=== PATIENT | female | born 1970 | race Caucasian/White ===

== ENCOUNTER 2017-11-14 12:16 | Emergency (ER) | payer BC ==
[2017-11-14 13:28] VITALS: BP 104/86
--- NOTE | 2017-11-14 13:30 | UC ---
General HPI - HPI Summary HPI Summary: PT IS C/O TIGHTNESS IN HER THROAT AND LUNGS SINCE YESTERDAY. REPORTS A HX OF ALLERGIES AND ASTHMA. STATES GETS THIS THE SAME TIME EVERY YEAR. STATES USED AN OLD INHALER AND TIGHTNESS IN LUNGS IMPROVED BUT THROAT STILL TIGHT BUT ONLY WITH DEEP BREATHS. DENIES HX CARDIAC DISEASE. NO NAUSEA OR SWEATING. NO HX DM , HIGH CHOL. IS A SMOKER. NO PREMATURE CAD IN FAMILY. NO FMH CAD. - History of Current Complaint Stated Complaint: SORE THROAT, ALLERGIES Time Seen by Provider: 11/14/17 13:23 Hx Obtained From: Patient Hx Last Menstrual Period: APPROX 4 WKS AGO. Aggravating: NOTHING, NOT EXERTIONAL Alleviating: INHALER Associated Signs & Symptoms: Negative: Back Pain, Cough, Chest Pain, Diaphoresis , Fever, Wheezing - Allergy/Home Medications Allergies/Adverse Reactions: Allergies Allergy/AdvReac Type Severity Reaction Status Date / Time benzocaine Allergy "Facial Verified 11/14/17 13:24 swelling and possible throat swelling" lidocaine Allergy "Facial Verified 11/14/17 13:24 swelling and possible throat swelling" tetracaine Allergy "Facial Verified 11/14/17 13:24 swelling and possible throat swelling" Home Medications: Home Medications Albuterol HFA INHALER* [Ventolin HFA Inhaler*] 1 - 2 puff INH Q4H PRN 11/14/17 [ History Confirmed 11/14/17] Fexofenadine (NF) [Марина 180 (NF)] 180 mg PO DAILY 11/14/17 [History Confirmed 11/14/17] PMH/Surg Hx/FS Hx/Imm Hx - Additional Past Medical History Additional PMH: ALLERGIES Respiratory History: Asthma - Surgical History Surgical History: Yes Surgery Procedure, Year, and Place: Left carpal tunnel release. Uterine polyps removed - Family History Known Family History: Positive: Hypertension, Diabetes, Respiratory Disease - COPD, Other - Cancer - Social History Lives: With Family Alcohol Use: Daily Substance Use Type: None Smoking Status (MU): Current Every Day Smoker Type: Cigarettes Amount Used/How Often: 6 CIGS PER DAY Length of Time of Smoking/Using Tobacco: 20 YRS - Immunization History Vaccination Up to Date: Yes Review of Systems Constitutional: Negative Skin: Negative Eyes: Negative ENT: Negative Respiratory: Negative Cardiovascular: Negative Gastrointestinal: Negative Genitourinary: Negative Motor: Negative Neurovascular: Negative Musculoskeletal: Negative Neurological: Negative Psychological: Negative Is Patient Immunocompromised?: No All Other Systems Reviewed And Are Negative: Yes Physical Exam Triage Information Reviewed: Yes Appearance: Well-Appearing Vital Signs Reviewed: Yes Eyes: Positive: Conjunctiva Clear ENT: Positive: Pharyngeal erythema, TMs normal. Negative: Nasal congestion, Nasal drainage Neck: Positive: Supple, Nontender, No Lymphadenopathy Respiratory: Positive: Lungs clear, No respiratory distress, Decreased breath sounds Cardiovascular: Positive: RRR, No Murmur, Other: - STRONG RADIAL PULSES, NO LEG EDEMA OR CORDS/CALF PAIN Abdomen Description: Positive: Nontender, No Organomegaly, Soft, Distended, Guarding Bowel Sounds: Positive: Present Musculoskeletal: Positive: ROM Intact, No Edema Neurological: Positive: Alert Psychological: Positive: Age Appropriate Behavior Skin Exam: Normal Diagnostics - Laboratory Diagnostic Studies Completed/Ordered: pt refused ekg, advised could miss cardiac issue but still refused. Re-Evaluation - Re-Evaluation Second Eval Re-Evaluation Time: 14:05 Change: Improved - pt notes lungs feel a little better but her throat tightness remains. pt did have vague symptoms with walking last week as well. she is now willing to go to ER but is refusing ekg here and EMS despite risk of acs, worsening, disability and . she is A&O x 3 thus I must respect his wish to drive self to the ER. Course/Dx - Course Course Of Treatment: at time of exam, pt advised of risk for cardiac pathology; however, she is refusing ekg and will not consider transfer to ER for the throat and chest tightness. she cites is c/w her allergies and asthma. pt also declined smoking cessation info. [facility] ER CALLED, REPORT GIVEN TO MS [facility]RE[facility] [employer]/ REYNALDO. ADVISED OF TIGHTNESS TO THROAT AND LUNGS NON RESOLVING WITH ASTHMA TX. CONCERN FOR ACS AND EKG REFUSED HER BUT DID GIVE 4 BABY ASA. - Differential Dx - Multi-Symptom Provider Diagnoses: Throat tightness, chest tightness, r/o acs. Discharge - Sign-Out/Discharge Documenting (check all that apply): Discharge - Discharge Plan Condition: Stable Disposition: AGAINST MEDICAL ADVICE Referrals: EDUARDO De La Torre [Primary Care Provider] - Additional Instructions: GO DIRECTLY TO THE EMERGENCY ROOM DISCUSSED. - Billing Disposition and Condition Condition: STABLE Disposition: [facility]
[2017-11-14] MEDS ORDERED: Albuterol 2.5 MG/3 ML NEB.SOL* (0.083%) INH ONE (13:33)
[2017-11-14] MEDS ORDERED: Aspirin 81 mg CHEW TAB* 81 MG TAB.CHEW PO ONE (14:08)
== END 2017-11-14 14:21 | disposition left against medical advice (07) ==
LOC: UCCORT 12:16
DX: J39.2 Other diseases of pharynx (principal); R07.89 Other chest pain; F17.210 Nicotine dependence, cigarettes, uncomplicated; Z53.21 Procedure and treatment not carried out due to patient leaving prior to being seen by health care provider; Z88.4 Allergy status to anesthetic agent
CPT/HCPCS: 99213; A9270-GY; G0463